=== PATIENT | female | born 1960 | race Caucasian/White ===

== ENCOUNTER 2022-09-16 07:56 | Day surgery (SDC) | payer MEDICARE, MEDICAID, SELFPAY ==
[2022-09-16 08:26] VITALS: BP 137/76; PULSE 94; RESP 16; TEMP 36.6; O2SAT 95
[2022-09-16] MEDS: Tropicam./Phenyleph. (1/2.5%) 5 ML BTL OS ×3 (08:41→08:52)
--- NOTE | 2022-09-16 09:00 | W.ANESPRE ---
General Info Date of Service Date Performed: 09/16/22 Height: 5 ft 4 in Weight: 90.2 kg Body Mass Index (BMI): 34.1 Surgical Procedure: Operation Date: 09/16/22 10:40 Proposed Procedure Side Surgeon p Cataract Extraction with IOL Implant Left Gio Underwood MD Meds Allergies and Home Medications Allergies Allergy/AdvReac Type Severity Reaction Status Date / Time No Known Allergies Allergy Verified 09/16/22 08:25 Home Medication Medication Instructions Recorded aripiprazole 5 mg tablet 5 mg PO DAILY 09/14/22 aspirin 81 mg capsule,delayed 81 mg PO DAILY 09/14/22 release budesonide-formoterol HFA 80 2 puff inhalation BID 09/14/22 mcg-4.5 mcg/actuation aerosol inhaler (Symbicort) diclofenac sodium 1 % topical gel 1 applic topical QID PRN 09/14/22 famotidine 20 mg tablet (Pepcid) 20 mg PO BID 09/14/22 gabapentin 300 mg tablet 900 mg PO TID 09/14/22 prednisone 1 mg tablet 4 mg PO DAILY 09/14/22 sertraline 100 mg tablet 100 mg PO DAILY 09/14/22 sertraline 50 mg tablet 50 mg PO DAILY 09/14/22 aripiprazole 2 mg tablet (Abilify) 2 mg PO DAILY 09/16/22 Current Visit Medications: Current Medications Generic Name Dose Route Start Last Admin Trade Name Freq PRN Reason Stop Dose Admin Acetaminophen 1,000 mg 09/16/22 06:00 Acetaminophen 500 Mg Tab PO Q4H PRN PRN Miscellaneous Medication 0 ml 09/16/22 06:00 09/16/22 08:52 Tropicam./Phenyleph. (1/2.5%) 5 Ml Btl OS 1 drp DIRECTED [facility] Administration Miscellaneous Medication 0 ml 09/16/22 06:00 Prednisolone 1%, Moxifloxacin 0.5%, Nepafenac 0.1% 5ml Btl OS DIRECTED [facility] Tetracaine HCl 0 ml 09/16/22 06:00 Tetracaine 0.5% 4 Ml Btl OS DIRECTED [facility] Medical History Medical History (Updated 09/16/22 @ 08:21 by Franko Weir) ADHD Anesthesia of skin Benign neoplastic disease Cataract Cervical radiculopathy Cervical spine degeneration Cervical spondylosis with myelopathy COPD (chronic obstructive pulmonary disease) Depressive disorder Fibromyalgia Headache HLD (hyperlipidemia) 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 Nicotine dependence HUONG (obstructive sleep apnea) Pain, joint, shoulder, left Polymyalgia rheumatica Therapeutic drug monitoring TMJ (temporomandibular joint disorder) Surgical History Surgical History History of arthroscopy of left shoulder History of orthopedic surgery Hx of cholecystectomy Hx of tubal ligation Tobacco Smoking/Tobacco Use Status: Current every day Tobacco Type: cigarettes Alcohol Alcohol Intake: never Substance Use Substance use: Never Substance use type: does not use Vital Signs and Lab Results Vital Signs Most Recent Vital Signs in EMR: Most Recent Vital Signs Temp Pulse Resp BP Pulse Ox 36.6 C 94 H 16 137/76 95 09/16/22 08:26 09/16/22 08:26 09/16/22 08:26 09/16/22 08:26 09/16/22 08:26 Lab Results Blood Type / Crossmatch: No Data to Display Complete Blood Count: No Data to Display Complete Metabolic Panel: No Data to Display Liver Function Panel: No Data to Display Coagulation Panel: No Data to Display Cardiac Panel: No Data to Display Arterial Blood Gas: No Data to Display Venous Blood Gas: No Data to Display Pancreas Panel: No Data to Display Thyroid Panel: No Data to Display Infectious Disease: No Data to Display Blood Cultures: No Data to Display Toxicology Panel: No Data to Display Anesthesia Assessment and Plan Anesthesia History Personal History: No History of Anesthesia Complications Family History: No Family History of Anesthesia Complications Exercise Tolerance Exercise Tolerance: Metabolic Equivalents>4 Pertinent Negatives Pertinent Negatives: No Symptoms of GERD (med controlled ) Cardiac & Pulmonary Exam Cardiac Exam: Normal S1/S2 Heart Sounds Pulmonary Exam: Clear Bilateral Breath Sounds Implantable Cardiac Device Does patient have a Pacemaker or an ICD?: No Airway Exam Known Difficult Airway: No Mallampati Class: 2 Mouth Opening: Normal (> 3cm) Thyromental Distance: Greater than 3 cm Neck Range of Motion: Full ROM Neck Circumference: Normal Teeth Condition: Normal Dentition ASA Classification ASA Score: ASA 2 Emergency Case?: No NPO Status NPO Status: NPO Clears >2 hours, Solids >8 hours Anesthesia Plan Resuscitation Status: Full Code Anesthesia Technique: MAC Anesthesia Airway Planned: Natural Airway Monitors Used: Standard Monitors Preoperative Comments:: Wants. CHARLES
[2022-09-16 09:08] VITALS: BMI 34.1
[2022-09-16] MEDS: Balanced Salt Soln.-PLUS 500 ML BAG (09:38)
[2022-09-16] MEDS: Tetracaine 0.5% 4 ML BTL OS (09:38)
[2022-09-16] MEDS: Duovisc Viscoelastic System EACH 1 EACH (09:39)
[2022-09-16] MEDS: Lidocaine 1% Pres-Free 5 ML VIAL (09:39)
[2022-09-16] MEDS: Lidocaine 2% Jelly 6 ML SYR (09:40)
[2022-09-16] MEDS: Trypan Blue 0.06% 0.5 ML SYR (09:41)
[2022-09-16] MEDS: Povidone-Iodine Ophth 30 ML BTL (09:41)
--- NOTE | 2022-09-16 10:14 | ROE_ITS ---
Date of service: 09/16/22 Time of Service: 10:15 Operative Note Operative Note DATE OF PROCEDURE: 09/16/22 PRE-OP DIAGNOSIS: Dense nuclear/cortical cataract, left eye POST-OP DIAGNOSIS: same PROCEDURE: Cataract extraction using phacoemulsification with intraocular lens implant, left eye SURGEON: Gio Underwood ANESTHESIA TYPE: Local By Surgeon and MAC Refer to Anesthesia Record PATHOLOGY: none sent COMPLICATIONS: None Patient was transported to: same day Patient's condition: stable Implants: Jj Clareon [id number] Indications: Progressive decreased vision due to cataract, left eye Procedure Description: CATARACT SURGERY OPERATIVE REPORT PREOPERATIVE DIAGNOSIS: Dense nuclear/cortical cataract, left eye POSTOPERATIVE DIAGNOSIS: Same OPERATION: Cataract extraction using phacoemulsification with posterior chamber intraocular lens implant, left eye. IOL: IOL Crew Leader Gluing/Model: Jj Clareon [id number] IOL Power: + 22.5 diopters IOL Serial Number: [id number] Optic Diameter: 6.0mm Haptic/Overall Diameter: 13.0mm PHACO INFO: JjTouchbase[employer]We[employer] Apps Vision System with OZil and Active Fluidics Cumulative Dispersed Energy (CDE): 16.70 seconds SURGEON: Gio Underwood MD, MARISELA ANESTHESIA: Monitored Anesthesia Care (MAC), with local sub-tenon's anesthetic infiltration COMPLICATIONS: None SPECIMENS: None INDICATIONS FOR PROCEDURE: The patient is a 62-year-old lady with history of diminished visual acuity in her left eye. She is noted to have a dense nuclear/cortical cataract in the left eye with poor red reflex. The option of cataract surgery was offered to the patient and she wished to proceed. PROCEDURE: The correct surgical eye was identified and marked as the left eye and the pupil was dilated in the preoperative area using mydriatics and cycloplegics. The dilated pupil size was 6.0 mm. Oral sedation was administered in the form of an Imprimis MKO Melt (midazolam 3mg/ketamine 25mg/ondansetron 2mg). . The patient was brought to the operating room where cardiopulmonary monitoring was instituted and surgical time-out was performed, confirming the correct operative eye and IOL power. Topical anesthesia was administered and ophthalmic povidone-iodine 5% was instilled into the conjunctival fornices. Lidocaine gel was applied to the cornea and the radha-ocular area was prepped with Betadine 10% solution and draped in the usual sterile fashion for intraocular surgery, including an a perture drape. A Tegaderm transparent film dressing was cut in half and used to cover the lashes and lid margins. Care was taken to sequester the lashes and lid margins under the Tegaderm dressing. A lid speculum was placed between the lids of the operative eye and the Jj Lux[employer] Revalia operating microscope was maneuvered into position. Orly scissors were then used to make a conjunctival buttonhole approximately 6mm posterior to the limbus in the inferonasal quadrant. Blunt dissection was carried out to expose bare sclera, and a blunt-tipped sub-tenon?s anesthesia cannula was introduced and passed posteriorly along the globe where non- preserved plain lidocaine was injected into posterior sub-Tenon?s space. A sideport knife was used to make a paracentesis port superior/superiortemporally. VisionBlue was injected into the anterior chamber and left to sit for 10 to 12 seconds. Intraocular phenylephrine/lidocaine was injected into the anterior chamber. The anterior chamber was then filled with viscoelastic. A keratome knife was used construct a two-plane near-clear corneal tunnel extending 2.0mm into clear cornea in the temporal position. . A flap was raised on the anterior capsule and capsulorhexis forceps were used to complete a continuous curvilinear capsulorhexis of 5.0 mm. Balanced salt solution was then used to perform cortical cleaving hydrodissection and nuclear hydrodelineation until the lens could be freely rotated within the capsular bag. The lens nucleus was then disassembled and removed within the capsular bag and iris plane using phacoemulsification. Nuclear splitters were used, as the nucleus did not want to crack easily. Residual cortical material was removed using the 45-degree angled silicone I/A tip with 0.3mm port. The posterior capsule was carefully polished to remove as much residual lens epithelial cells as safely possible. The capsular bag was then inflated and the anterior chamber deepened with viscoelastic. The lens implant described above was inserted into the capsular bag using the Jj Autonome Injector. A Kuglen hook was used to dial the IOL into position. Residual viscoelastic was then removed first from posterior to the IOL, then from the anterior chamber using the I/A handpiece. The lens implant was noted to center nicely within the capsular bag. The incisions were stromally hydrated, and the anterior chamber was reformed using BSS. Then 0.5cc of moxifloxacin 1.0mg/ml were injected into the capsular bag and anterior chamber. The incisions were checked with a Weck spear and found to be secure. Several drops of ophthalmic povidone-iodine 5% were then applied to the eye followed by two drops of Imprimis combination prednisolone/moxifloxacin/nepafenac solution. The drapes were removed and a clear plastic protective eye shield was placed over the eye. The patient was then returned to Same Day Surgery in stable condition.
--- NOTE | 2022-09-16 10:14 | W.PM.DSUDISC ---
Date of service: 09/16/22 Time of Service: 10:14 Discharge Plan Disposition Patient Disposition: Home Discharge Details Attending Provider: Gio Underwood Primary Care Provider: Chay Hopkins Home Meds and New Rx's Prescriptions: No Action sertraline 100 mg Tablet 100 mg PO DAILY aspirin 81 mg Capsule,Delayed Release(Dr/Ec) 81 mg PO DAILY famotidine [Pepcid] 20 mg Tablet 20 mg PO BID prednisone 1 mg Tablet 4 mg PO DAILY sertraline 50 mg Tablet 50 mg PO DAILY aripiprazole 5 mg Tablet 5 mg PO DAILY gabapentin 300 mg Tablet 900 mg PO TID budesonide-formoterol [Symbicort] 80-4.5 mcg/actuation Hfa Aerosol Inhaler 2 puff INHALATION BID diclofenac sodium 1 % Gel 1 applic TOPICAL QID PRN aripiprazole [Abilify] 2 mg Tablet 2 mg PO DAILY Discharge Instructions Stand Alone Forms: Post-op Topical Cataract, Jakub Mascorro (DSU) Discharge Orders Discharge Orders: Discharge Order (Routine); Ordered 09/16/22 Ordered By: Gio Underwood DS: Diagnosis Discharge Diagnosis (1) Cortical cataract of left eye: Status: Resolved (2) Nuclear sclerotic cataract of left eye: Status: Resolved
[2022-09-16 10:15] VITALS: BP 108/66; PULSE 84; RESP 18; TEMP 36.5; O2SAT 98
--- NOTE | 2022-09-16 10:30 | W.ANESPOSTOP ---
Postoperative Evaluation Date, Time and Location Date Performed: 09/16/22 Time Performed: 10:15 Patient Location: Day Surgery Unit Vital Signs Most Recent Imported Vital Signs: Most Recent Vital Signs Temp Pulse Resp BP Pulse Ox 36.5 C 84 18 108/66 98 09/16/22 10:15 09/16/22 10:15 09/16/22 10:15 09/16/22 10:15 09/16/22 10:15 Pain Score Most Recent Pain Score: Most Recent Pain Score Pain Level 0 09/16/22 10:15 Assessment Mental Status: Awake (Alert & Oriented to Patient Baseline) Airway and Respiratory Function: Patent airway with normal (patient baseline) respiratory exam Cardiovascular Function: Hemodynamically Stable Hydration Status: Adequately Hydrated Nausea & Vomiting: No Nausea or Vomiting Pain: Pt. Denies Any Pain Peripheral Nerve Block: Patient did not receive a nerve block
[2022-09-16 10:45] VITALS: BP 117/88; PULSE 83; RESP 18; TEMP 36.6; O2SAT 96
== END 2022-09-16 10:50 | disposition home or self-care (01) ==
LOC: SUR 07:58
PROVIDERS: PCP Family Medicine; Visit Provider Ophthalmology
PROC: (CPT 66982; principal; 2022-09-16 10:30)
DX: H25.12 Age-related nuclear cataract, left eye (principal); H26.8 Other specified cataract
CPT/HCPCS: 66982; V2632

== ENCOUNTER 2022-09-23 06:54 | Day surgery (SDC) | payer MEDICARE, MEDICAID, SELFPAY ==
--- NOTE | 2022-09-23 06:50 | ANES.PREOP_ITS ---
General Info Date of Service Date Performed: 09/23/22 Height: 5 ft 3 in Weight: 89.7 kg Body Mass Index (BMI): 35.0 Surgical Procedure: Operation Date: 09/23/22 08:25 Proposed Procedure Side Surgeon p Cataract Extraction with IOL Implant Right Gio Underwood MD Meds Allergies and Home Medications Allergies Allergy/AdvReac Type Severity Reaction Status Date / Time No Known Allergies Allergy Verified 09/21/22 15:10 Home Medication Medication Instructions Recorded aripiprazole 5 mg tablet 5 mg PO DAILY 09/14/22 aspirin 81 mg capsule,delayed 81 mg PO DAILY 09/14/22 release budesonide-formoterol HFA 80 2 puff inhalation BID 09/14/22 mcg-4.5 mcg/actuation aerosol inhaler (Symbicort) diclofenac sodium 1 % topical gel 1 applic topical QID PRN 09/14/22 famotidine 20 mg tablet (Pepcid) 20 mg PO BID 09/14/22 gabapentin 300 mg tablet 900 mg PO TID 09/14/22 prednisone 1 mg tablet 4 mg PO DAILY 09/14/22 sertraline 100 mg tablet 100 mg PO DAILY 09/14/22 sertraline 50 mg tablet 50 mg PO DAILY 09/14/22 aripiprazole 2 mg tablet (Abilify) 2 mg PO DAILY 09/16/22 Current Visit Medications: Current Medications Generic Name Dose Route Start Last Admin Trade Name Freq PRN Reason Stop Dose Admin Acetaminophen 1,000 mg 09/23/22 06:00 Acetaminophen 500 Mg Tab PO Q4H PRN PRN Miscellaneous Medication 0 ml 09/23/22 06:00 Tropicam./Phenyleph. (1/2.5%) 5 Ml Btl OD DIRECTED [facility] Miscellaneous Medication 0 ml 09/23/22 06:00 Prednisolone 1%, Moxifloxacin 0.5%, Nepafenac 0.1% 5ml Btl OD DIRECTED [facility] Tetracaine HCl 0 ml 09/23/22 06:00 Tetracaine 0.5% 4 Ml Btl OD DIRECTED [facility] PFSH Active Problems Active Problems: Problem Status Onset Code Cortical cataract of left eye H26.9 Nuclear sclerotic cataract of left eye H25.12 Medical History Medical History (Updated 09/23/22 @ 08:03 by Gio Underwood MD) ADHD Anesthesia of skin Benign neoplastic disease Cataract Cervical radiculopathy Cervical spine degeneration Cervical spondylosis with myelopathy COPD (chronic obstructive pulmonary disease) Depressive disorder Fibromyalgia Headache HLD (hyperlipidemia) 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 Nicotine dependence HUONG (obstructive sleep apnea) Pain, joint, shoulder, left Polymyalgia rheumatica Therapeutic drug monitoring TMJ (temporomandibular joint disorder) Surgical History Surgical History History of arthroscopy of left shoulder History of orthopedic surgery Hx of cholecystectomy Hx of tubal ligation Tobacco Smoking/Tobacco Use Status: Current every day Tobacco Type: cigarettes Alcohol Alcohol Intake: never Substance Use Substance use: Never Substance use type: does not use Vital Signs and Lab Results Lab Results Blood Type / Crossmatch: No Data to Display Complete Blood Count: No Data to Display Complete Metabolic Panel: No Data to Display Liver Function Panel: No Data to Display Coagulation Panel: No Data to Display Cardiac Panel: No Data to Display Arterial Blood Gas: No Data to Display Venous Blood Gas: No Data to Display Pancreas Panel: No Data to Display Thyroid Panel: No Data to Display Infectious Disease: No Data to Display Blood Cultures: No Data to Display Toxicology Panel: No Data to Display Anesthesia Assessment and Plan Anesthesia History Personal History: No History of Anesthesia Complications Family History: No Family History of Anesthesia Complications Exercise Tolerance Exercise Tolerance: Metabolic Equivalents>4 Pertinent Negatives Pertinent Negatives: No Symptoms of GERD, No Major Cardiovascular Symptoms or Complaints, No Major Pulmonary Symptoms or Complaints and No History of CVA/TIA Cardiac & Pulmonary Exam Cardiac Exam: Normal S1/S2 Heart Sounds Pulmonary Exam: Clear Bilateral Breath Sounds Implantable Cardiac Device Does patient have a Pacemaker or an ICD?: No Airway Exam Known Difficult Airway: No Mallampati Class: 2 Mouth Opening: Normal (> 3cm) Thyromental Distance: Greater than 3 cm Neck Range of Motion: Full ROM Neck Circumference: Normal Teeth Condition: Edentulous ASA Classification ASA Score: ASA 3 Emergency Case?: No NPO Status NPO Status: NPO Clears >2 hours, Solids >8 hours Anesthesia Plan Resuscitation Status: Full Code Anesthesia Technique: MAC Anesthesia Airway Planned: Natural Airway Monitors Used: Standard Monitors Preoperative Comments:: MKO last visit. Wants a repeat of plan
[2022-09-23 06:59] VITALS: BP 142/105; PULSE 86; RESP 16; TEMP 36.6; O2SAT 97
[2022-09-23] MEDS: Tropicam./Phenyleph. (1/2.5%) 5 ML BTL OD ×3 (07:22→07:32)
[2022-09-23 08:17] VITALS: BMI 35.0
[2022-09-23] MEDS: Tetracaine 0.5% 4 ML BTL OD (08:25)
[2022-09-23] MEDS: Trypan Blue 0.06% 0.5 ML SYR (08:26)
[2022-09-23] MEDS: Balanced Salt Soln.-PLUS 500 ML BAG (08:31)
[2022-09-23] MEDS: Duovisc Viscoelastic System EACH 1 EACH (08:32)
[2022-09-23] MEDS: Lidocaine 2% Jelly 6 ML SYR (08:33)
[2022-09-23 08:46] VITALS: BP 121/92; PULSE 85; RESP 16; TEMP 36.5; O2SAT 97
--- NOTE | 2022-09-23 08:46 | W.PM.DSUDISC ---
Date of service: 09/23/22 Time of Service: 08:46 Discharge Plan Disposition Patient Disposition: Home Discharge Details Attending Provider: Gio Underwood Primary Care Provider: Chay oHpkins Home Meds and New Rx's Prescriptions: No Action sertraline 100 mg Tablet 100 mg PO DAILY aspirin 81 mg Capsule,Delayed Release(Dr/Ec) 81 mg PO DAILY famotidine [Pepcid] 20 mg Tablet 20 mg PO BID prednisone 1 mg Tablet 4 mg PO DAILY sertraline 50 mg Tablet 50 mg PO DAILY aripiprazole 5 mg Tablet 5 mg PO DAILY gabapentin 300 mg Tablet 900 mg PO TID budesonide-formoterol [Symbicort] 80-4.5 mcg/actuation Hfa Aerosol Inhaler 2 puff INHALATION BID diclofenac sodium 1 % Gel 1 applic TOPICAL QID PRN aripiprazole [Abilify] 2 mg Tablet 2 mg PO DAILY Discharge Instructions Stand Alone Forms: Post-op Topical Cataract, Jakub Mascorro (DSU) Discharge Orders Discharge Orders: Discharge Order (Routine); Ordered 09/23/22 Ordered By: Gio Underwood DS: Diagnosis Discharge Diagnosis (1) Cortical cataract of right eye: Status: Resolved (2) Nuclear sclerotic cataract of right eye: Status: Resolved
--- NOTE | 2022-09-23 08:47 | W.PM.OP ---
Date of service: 09/23/22 Time of Service: 08:47 Operative Note Operative Note DATE OF PROCEDURE: 09/23/22 PRE-OP DIAGNOSIS: Nuclear/cortical cataract, right eye POST-OP DIAGNOSIS: same PROCEDURE: Cataract extraction using phacoemulsification with intraocular lens implant, right eye SURGEON: Gio Underwood ANESTHESIA TYPE: Local By Surgeon and MAC Refer to Anesthesia Record ESTIMATED BLOOD LOSS: 0 PATHOLOGY: none sent COMPLICATIONS: None Patient was transported to: same day Patient's condition: stable Implants: Jj Clareon [id number] Indications: Progressive decreased vision due to cataract, right eye Procedure Description: CATARACT SURGERY OPERATIVE REPORT PREOPERATIVE DIAGNOSIS: Nuclear/cortical cataract, right eye Poor red reflex, right eye secondary to cataract POSTOPERATIVE DIAGNOSIS: Same OPERATION: Cataract extraction using phacoemulsification with posterior chamber intraocular lens implant, right eye. Capsular staining with VisionBlue IOL: IOL Radiation Control Specialist/Model: Jj Clareon [id number] IOL Power: + 23.5 diopters IOL Serial Number: [id number] Optic Diameter: 6.0mm Haptic/Overall Diameter: 13.0mm PHACO INFO: Jj [employer] Vision System with OZil and Active Fluidics Cumulative Dispersed Energy (CDE): 8.30 seconds SURGEON: Gio Underwood MD, MARISELA ANESTHESIA: Monitored Anesthesia Care (MAC), with local sub-tenon's anesthetic infiltration COMPLICATIONS: None SPECIMENS: None INDICATIONS FOR PROCEDURE: The patient is a 62-year-old lady with history of diminished visual acuity in both eyes secondary to the development of bilateral nuclear/cortical cataract. The option of cataract surgery was offered to the patient and she wished to proceed. She has already undergone cataract surgery in the left eye and is doing well postoperatively. She now presents for cataract surgery in the right eye. PROCEDURE: The correct surgical eye was identified and marked as the right eye and the pupil was dilated in the preoperative area using mydriatics and cycloplegics. The dilated pupil size was 6.0 mm. Oral sedation was administered in the form of an Imprimis MKO Melt (midazolam 3mg/ketamine 25mg/ondansetron 2mg). The patient was brought to the operating room where cardiopulmonary monitoring was instituted and surgical time-out was performed, confirming the correct operative eye and IOL power. Topical anesthesia was administered and ophthalmic povidone-iodine 5% was instilled into the conjunctival fornices. Lidocaine gel was applied to the cornea and the radha-ocular area was prepped with Betadine 10% solution and draped in the usual sterile fashion for intraocular surgery, including an aperture drape. A Tegaderm transparent film dressing was cut in half and used to cover the lashes and lid margins. Care was taken to sequester the lashes and lid margins under the Tegaderm dressing. A lid speculum was placed between the lids of the operative eye and the Benji-Meagan operating microscope was maneuvered into position. Orly scissors were then used to make a conjunctival buttonhole approximately 6mm posterior to the limbus in the inferonasal quadrant. Blunt dissection was carried out to expose bare sclera, and a blunt-tipped sub-tenon?s anesthesia cannula was introduced and passed posteriorly along the globe where non-preserved plain lidocaine was injected into posterior sub-Tenon?s space. A sideport knife was used to make a paracentesis port inferiortemporally. Intraocular phenylephrine/lidocaine was injected into the anterior chamber. The anterior chamber was then filled with viscoelastic. A keratome knife was used to construct a two--plane near-clear corneal tunnel extending 2.0mm into clear cornea in the superiortemporal position.. A flap was raised on the anterior capsule and capsulorhexis forceps were used to complete a continuous curvilinear capsulorhexis of 4.8 mm. Balanced salt solution was then used to perform cortical cleaving hydrodissection and nuclear hydrodelineation until the lens could be freely rotated within the capsular bag. The lens nucleus was then disassembled and removed within the capsular bag and iris plane using phacoemulsification. Residual cortical material was removed using the I/A handpiece. The posterior capsule was carefully polished to remove as much residual lens epithelial cells as safely possible. There was some residual central posterior subcapsular plaque which could not be safely removed. The capsular bag was then inflated and the anterior chamber deepened with viscoelastic. The lens implant described above was inserted into the capsular bag using the Jj Autonome Injector. A Kuglen hook was used to dial the IOL into position. Residual viscoelastic was then removed first from posterior to the IOL, then from the anterior chamber using the I/A handpiece. The lens implant was noted to center nicely within the capsular bag. The incisions were stromally hydrated, and the anterior chamber was reformed using BSS. Then 0.5cc of moxifloxacin 1.0mg/ml were injected into the capsular bag and anterior chamber. The incisions were checked with a Weck spear and found to be secure. Several drops of ophthalmic povidone-iodine 5% were then applied to the eye followed by two drops of Imprimis combination prednisolone/moxifloxacin/nepafenac solution. The drapes were removed and a clear plastic protective eye shield was placed over the eye. The patient was then returned to Same Day Surgery in stable condition.
[2022-09-23 09:10] VITALS: BP 142/102; PULSE 83; RESP 16; TEMP 36.5; O2SAT 97
--- NOTE | 2022-09-23 10:01 | W.ANESPOSTOP ---
Postoperative Evaluation Date, Time and Location Date Performed: 09/23/22 Time Performed: 08:47 Patient Location: Day Surgery Unit Vital Signs Most Recent Imported Vital Signs: Most Recent Vital Signs Temp Pulse Resp BP Pulse Ox 36.5 C 83 16 142/102 H 97 09/23/22 09:10 09/23/22 09:10 09/23/22 09:10 09/23/22 09:10 09/23/22 09:10 Pain Score Most Recent Pain Score: Most Recent Pain Score Pain Level 0 09/23/22 09:10 Assessment Mental Status: Awake (Alert & Oriented to Patient Baseline) Airway and Respiratory Function: Patent airway with normal (patient baseline) respiratory exam Cardiovascular Function: Hemodynamically Stable Hydration Status: Adequately Hydrated Nausea & Vomiting: No Nausea or Vomiting Pain: Pt. Denies Any Pain Peripheral Nerve Block: Other (Local by Dr. Underwood)
== END 2022-09-23 09:15 | disposition home or self-care (01) ==
LOC: SUR 06:54
PROVIDERS: PCP Family Medicine; Visit Provider Ophthalmology
PROC: (CPT 66982; principal; 2022-09-23 08:15)
DX: H25.11 Age-related nuclear cataract, right eye (principal); H26.8 Other specified cataract
CPT/HCPCS: 66982; V2632

== ENCOUNTER 2023-06-05 14:50 | Outpatient (REF) | payer MEDICARE, MEDICAID, SELFPAY ==
[2023-06-05 15:00] LABS: Absolute Basophil Count 0.03 10^3/uL (0.0-0.2); Absolute Eosinophil Count 0.02 10^3/uL (0.0-0.7); Absolute Lymphocyte Count 0.59 10^3/uL (1.2-3.4); Absolute Monocyte Count 0.23 10^3/uL (0.1-0.8); Basophils % 2.9; HCT 33.4 % (36.0-46.0); HGB 10.7 g/dL (11.2-15.7); Lymphocytes % 57.8; MCH 28.2 pg (27.0-33.0); MCV 88 fL (80-95); MPV 9.6 fL (8.0-11.0); Monocytes % 22.5; Neutrophils % 14.8; Platelet Count 209 10^3/uL (130-400); RBC 3.79 10^6/uL (3.93-5.22); RDW 15.4 % (11.7-14.6); RDW-SD 47.9 fL
[2023-06-05 15:08] LABS: Absolute Neutrophil Count 0.15 10^3/uL (1.2-6.7); WBC 1.02 10^3/uL (4.4-10.8)
[2023-06-05 15:09] LABS: ALT 103 U/L (14-59); AST 92 U/L (15-37); Albumin 2.8 g/dL (3.4-5.0); Alkaline Phosphatase 366 U/L (46-116); Anion Gap 11.2 mmol/L (3-11); BUN 10 mg/dL (7-18); Bilirubin, Total 0.3 mg/dL (0.2-1.0); CO2 24.8 mmol/L (21.0-32.0); CREATININE 0.6 mg/dL (0.55-1.02); Calcium 9.2 mg/dL (8.5-10.1); Chloride 101 mmol/L (98-107); Estimated GFR 99.55 (mL/min/1.73m2); Glucose 124 mg/dL (74-106); Potassium 3.7 mmol/L (3.5-5.1); Sodium 137 mmol/L (136-145); Total Protein 7.7 g/dL (6.4-8.2)
[2023-06-05 15:16] LABS: Diff Comment Diff Reviewed; RBC Morphology Normal
== END 2023-06-05 14:51 | disposition home or self-care (01) ==
LOC: LBN 14:50
PROVIDERS: PCP Family Medicine; Visit Provider Internal Medicine Medical Oncology
DX: C34.90 Malignant neoplasm of unspecified part of unspecified bronchus or lung (principal); C69.51 Malignant neoplasm of right lacrimal gland and duct; C78.7 Secondary malignant neoplasm of liver and intrahepatic bile duct
CPT/HCPCS: 80053; 83735; 85025

== ENCOUNTER 2023-06-14 01:43 | Outpatient (CLI) | payer MEDICARE, MEDICAID, SELFPAY ==
[2023-06-14 08:36] LABS: Absolute Eosinophil Count 0.02 10^3/uL (0.0-0.7); Absolute Lymphocyte Count 1.38 10^3/uL (1.2-3.4); Absolute Monocyte Count 1.03 10^3/uL (0.1-0.8); Basophils % 0.9; Eosinophils % 0.2; HCT 35.4 % (36.0-46.0); HGB 11.4 g/dL (11.2-15.7); Immature Grans % 3.7; Lymphocytes % 12.7; MCH 28.1 pg (27.0-33.0); MCHC 32.2 % (32.0-36.0); MCV 87 fL (80-95); MPV 10.3 fL (8.0-11.0); Monocytes % 9.5; Platelet Count 418 10^3/uL (130-400); RBC 4.05 10^6/uL (3.93-5.22); RDW 17.2 % (11.7-14.6); RDW-SD 51.9 fL; WBC 10.83 10^3/uL (4.4-10.8)
[2023-06-14 08:39] LABS: Absolute Neutrophil Count 7.91 10^3/uL (1.2-6.7)
[2023-06-14 08:56] LABS: ALT 74 U/L (14-59); AST 244 U/L (15-37); Albumin 2.8 g/dL (3.4-5.0); Alkaline Phosphatase 598 U/L (46-116); Anion Gap 11.2 mmol/L (3-11); BUN 6 mg/dL (7-18); Bilirubin, Total 0.5 mg/dL (0.2-1.0); CO2 23.8 mmol/L (21.0-32.0); CREATININE 0.6 mg/dL (0.55-1.02); Calcium 9.6 mg/dL (8.5-10.1); Chloride 101 mmol/L (98-107); Estimated GFR 99.55 (mL/min/1.73m2); FREE T4 1.25 ng/dL (0.76-1.46); Glucose 109 mg/dL (74-106); Magnesium 1.9 mg/dL (1.8-2.4); Potassium 3.9 mmol/L (3.5-5.1); Sodium 136 mmol/L (136-145); TSH 4.16 uIU/mL (0.36-3.74); Total Protein 7.9 g/dL (6.4-8.2)
== END 2023-06-14 01:44 | disposition home or self-care (01) ==
LOC: LBO 01:43
PROVIDERS: PCP Family Medicine; Visit Provider Internal Medicine Medical Oncology
DX: Z79.899 Other long term (current) drug therapy (principal); C34.90 Malignant neoplasm of unspecified part of unspecified bronchus or lung; C79.51 Secondary malignant neoplasm of bone
CPT/HCPCS: 36415; 80053; 83735; 84439; 84443; 85025

== ENCOUNTER → 2023-06-28 01:54 | Outpatient (CLI) | payer MEDICARE, MEDICAID, SELFPAY ==
--- NOTE | 2023-06-28 | DI.CT_ITS ---
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 TECHNIQUE: Imaging Protocol: Axial computed tomography images with coronal and sagittal reformatted images were created and reviewed CONTRAST MATERIAL: Intravenous: Omnipaque 350 Contrast volume:100 ml Oral: yes / COMPARISON: CT CT CHEST/ABD/PELVIS W/CONTRAST from 04/13/2023 FINDINGS: CHEST: Tracheobronchial tree: Patent where visualized. Pulmonary parenchyma: There is now please atelectasis of the right upper lobe. Underlying moderate e mphysematous changes. No pulmonary nodules.. Pleura: No effusion or pneumothorax. Lymph nodes: Abnormally enlarged bilateral supraclavicular lymph nodes not fully included on the exam . Confluent right paratracheal to subcarinal lymph nodes, stable appearance. Aorta: Thoracic portio n non-dilated. Heart: No pericardial effusion. Bones: Patchy areas of lucency in the T7, T9 and T10 vertebral bodies appear stable.No compression fr actures. Soft tissues: Unremarkable. ABDOMEN and PELVIS: Liver: Significant interval increase in size of liver metastases. Gallbladder and biliary tract: Status post cholecystectomy. No biliary dilatation. Pancreas: Normal density, no abnormal calcifications or inflammatory process. Spleen: Normal. Kidneys: Normal size, contour and axis. No radiodense stones hip. No obstructive uropathy. No suspic ious masses seen. Adrenal glands: Increase in size of right adrenal metastasis. A new small nodule in the inferior lef t adrenal. Aorta: Abdominal portion non-dilated. Atherosclerotic changes. Lymph nodes: Stable appearance of portacaval and para-aortic adenopathy. Soft tissues: Unremarkable. Bladder: Unremarkable. Bowel: No obstruction or bowel wall thickening. Diverticulosis. Appendix normal. Peritoneal cavity: No ascites. No focal collection. No mesenteric inflammatory response. Bones: Severe degenerative changes of the right hip. Reproductive organs: Status post hysterectomy. IMPRESSION: Chest: Atelectasis of the right upper lobe now present. Mediastinal adenopathy appears relatively un changed. Abdomen pelvis: Interval increase in size of liver metastases. Stable portacaval and para-aortic franco nopathy. Increased size of right adrenal metastasis. New left adrenal metastasis. RADIATION DOSE DELIVERED: Total DLP DATA REPOSITORY: All CT scans at this facility are submitted to the National Radiology Data Registry (NRDR) Dose Index Registry (DIR) with the [employer] ([employer]). RADIATION OPTIMIZATION: All CT scans at this facility use at least one of these dose optimization te chniques: automated exposure control; mA and/or kV adjustment per patient size (includes targeted exa ms where dose is matched to clinical indication); or iterative reconstruction.
[2023-06-28] MEDS: Omnipaque 350 MG/ML 100 ML BTL IJ (14:25)
[2023-06-28] MEDS: Normal Saline - Diluent 50 ML VIAL IJ (14:26)
== END ==
PROVIDERS: PCP Family Medicine; Visit Provider Internal Medicine Medical Oncology
DX: C34.91 Malignant neoplasm of unspecified part of right bronchus or lung (principal); C79.51 Secondary malignant neoplasm of bone; C78.7 Secondary malignant neoplasm of liver and intrahepatic bile duct
CPT/HCPCS: 74177; 71260; J3490

== ENCOUNTER 2023-07-03 03:31 | Outpatient (CLI) | payer MEDICARE, MEDICAID, SELFPAY ==
[2023-07-03 09:48] LABS: Abs Immature Grans 0.13 10^3/uL (0.0-0.06); Absolute Eosinophil Count 0.02 10^3/uL (0.0-0.7); Absolute Neutrophil Count 12.71 10^3/uL (1.2-6.7); Basophils % 0.7; Eosinophils % 0.1; HCT 35.1 % (36.0-46.0); HGB 11.4 g/dL (11.2-15.7); Immature Grans % 0.9; Lymphocytes % 7.3; MCH 28.2 pg (27.0-33.0); MCHC 32.5 % (32.0-36.0); MCV 87 fL (80-95); MPV 9.8 fL (8.0-11.0); Monocytes % 6.9; Neutrophils % 84.1; Nucleated RBC 0.1 % (0.0-0.3); Platelet Count 415 10^3/uL (130-400); RBC 4.04 10^6/uL (3.93-5.22); RDW 18.9 % (11.7-14.6); RDW-SD 57.1 fL; WBC 15.11 10^3/uL (4.4-10.8)
[2023-07-03 09:53] LABS: Absolute Basophil Count 0.11 10^3/uL (0.0-0.2); Absolute Monocyte Count 1.04 10^3/uL (0.1-0.8)
[2023-07-03 10:17] LABS: ALT 34 U/L (14-59); AST 187 U/L (15-37); Albumin 2.7 g/dL (3.4-5.0); Alkaline Phosphatase 598 U/L (46-116); Anion Gap 12.4 mmol/L (3-11); BUN 5 mg/dL (7-18); Bilirubin, Total 0.5 mg/dL (0.2-1.0); CO2 22.6 mmol/L (21.0-32.0); CREATININE 0.7 mg/dL (0.55-1.02); Calcium 9.4 mg/dL (8.5-10.1); Chloride 98 mmol/L (98-107); Estimated GFR 95.92 (mL/min/1.73m2); FREE T4 1.24 ng/dL (0.76-1.46); Glucose 155 mg/dL (74-106); Magnesium 1.9 mg/dL (1.8-2.4); Potassium 3.6 mmol/L (3.5-5.1); Sodium 133 mmol/L (136-145); Total Protein 7.9 g/dL (6.4-8.2)
== END 2023-07-03 03:32 | disposition home or self-care (01) ==
LOC: LBO 03:31
PROVIDERS: PCP Family Medicine; Visit Provider Internal Medicine Medical Oncology
DX: Z79.899 Other long term (current) drug therapy (principal); C78.7 Secondary malignant neoplasm of liver and intrahepatic bile duct
CPT/HCPCS: 36415; 80053; 83735; 84439; 84443; 85025

== ENCOUNTER 2023-07-24 02:52 | Outpatient (CLI) | payer MEDICARE, MEDICAID, SELFPAY ==
[2023-07-24 08:39] LABS: Absolute Eosinophil Count 0.05 10^3/uL (0.0-0.7); Absolute Lymphocyte Count 0.89 10^3/uL (1.2-3.4); Absolute Monocyte Count 0.99 10^3/uL (0.1-0.8); Basophils % 0.6; Eosinophils % 0.4; Immature Grans % 0.8; Lymphocytes % 7.1; MCH 28.4 pg (27.0-33.0); MCHC 32.4 % (32.0-36.0); MCV 88 fL (80-95); MPV 10.3 fL (8.0-11.0); Monocytes % 7.9; Neutrophils % 83.2; Platelet Count 348 10^3/uL (130-400); RBC 3.87 10^6/uL (3.93-5.22); RDW 20.4 % (11.7-14.6); RDW-SD 65.1 fL
[2023-07-24 08:51] LABS: Absolute Basophil Count 0.08 10^3/uL (0.0-0.2)
[2023-07-24 08:53] LABS: Anisocytosis 2+; Diff Comment Diff Reviewed
[2023-07-24 09:03] LABS: ALT 53 U/L (14-59); AST 246 U/L (15-37); Albumin 2.7 g/dL (3.4-5.0); Alkaline Phosphatase 735 U/L (46-116); Anion Gap 11.6 mmol/L (3-11); BUN 5 mg/dL (7-18); Bilirubin, Total 0.8 mg/dL (0.2-1.0); CO2 24.4 mmol/L (21.0-32.0); CREATININE 0.6 mg/dL (0.55-1.02); Calcium 8.7 mg/dL (8.5-10.1); Chloride 98 mmol/L (98-107); Estimated GFR 99.55 (mL/min/1.73m2); FREE T4 1.47 ng/dL (0.76-1.46); Glucose 141 mg/dL (74-106); Magnesium 1.9 mg/dL (1.8-2.4); Potassium 3.2 mmol/L (3.5-5.1); Sodium 134 mmol/L (136-145); TSH 3.18 uIU/mL (0.36-3.74); Total Protein 7.8 g/dL (6.4-8.2)
== END 2023-07-24 02:53 | disposition home or self-care (01) ==
LOC: LBO 02:53
PROVIDERS: PCP Family Medicine; Visit Provider Internal Medicine Medical Oncology
DX: Z79.899 Other long term (current) drug therapy (principal); C34.90 Malignant neoplasm of unspecified part of unspecified bronchus or lung; C79.51 Secondary malignant neoplasm of bone; C78.7 Secondary malignant neoplasm of liver and intrahepatic bile duct
CPT/HCPCS: 36415; 80053; 83735; 84439; 84443; 85025

== ENCOUNTER → 2023-08-09 01:54 | Outpatient (CLI) | payer MEDICARE, MEDICAID, SELFPAY ==
[2023-08-09] MEDS: Barium Sulfate 2% W/V-Creamy Vanilla Smoothie 450 ML BTL PO (10:10)
[2023-08-09] MEDS: Normal Saline - Diluent 50 ML VIAL IJ (11:04)
[2023-08-09] MEDS: Omnipaque 350 MG/ML 500 ML BTL-Imaging package 100 ML IJ (11:05)
--- NOTE | 2023-08-09 11:30 | DI.CT_ITS ---
Exam(s) CT CHEST/ABD/PEL W EXAM: CT CHEST/ABD/PEL W CLINICAL HISTORY: LUNG CA,C34.90,METS TO BONE,LIVER,C79.51,C78.7,RESTAGING EXAM,ON CHEMO. TECHNIQUE: Imaging Protocol: Axial computed tomography images with coronal and sagittal reformatted images were created and reviewed CONTRAST MATERIAL: Intravenous: Omnipaque 350 Contrast volume:100 ml Oral: 900 mL barium PO COMPARISON: CT CT CHEST/ABD/PELVIS W/CONTRAST from 04/13/[address] CHEST/ABD/PEL W from 06/28/2023 FINDINGS: CHEST: Tracheobronchial tree: Patent where visualized. Pulmonary parenchyma: Stable atelectasis right upper lobe. Pleura: No effusion or pneumothorax. Lymph nodes: Abnormally enlarged bilateral supraclavicular lymph nodes again noted, partially include d in field of view. Stable enlarged mediastinal and right hilar lymph nodes, merging on with right carlson perior hilar mass. Stable small left hilar node. Underlying emphysematous changes. No new infiltrates or pulmonary nodules. Aorta: Thoracic portion non-dilated. Heart: No pericardial effusion. Bones: Patchy marrow signal and T7, T9 and T10. Slight compression of T7.Slight sclerosis is now note d in the T7 vertebral body increasing from prior. Soft tissues: Port over right upper chest. ABDOMEN and PELVIS: Liver: Underlying fatty infiltration of the liver. Mild interval increase in size of liver metastases . But the largest lesion in the left lobe measures roughly 7.5 cm compared to 6.3 on the prior exam. A large lesion in the inferior right lobe measures 7.5 cm compared with 6 cm on the prior exam. Gallbladder and biliary tract: No evidence of stones or wall thickening. No biliary dilatation. Pancreas: Normal density, no abnormal calcifications or inflammatory process. Spleen: Normal. Kidneys: Normal size, contour and axis. No radiodense stones hip. No obstructive uropathy. No suspic ious masses seen. Adrenal glands: Stable bilateral renal nodules, right greater than left. Aorta: Abdominal portion non-dilated. Lymph nodes: Multiple abnormally enlarged lymph nodes in the region of the ghada hepatis and para-aor tic region. Stable from prior exam. Soft tissues: Unremarkable. Bladder: Unremarkable. Bowel: No obstruction. Sigmoid diverticulosis. Peritoneal cavity: No ascites. No focal collection. No mesenteric inflammatory response. Bones: Abnormal sclerotic appearance to the S1, S4 and S5 segments. Sclerotic mottled appearance of t he left pubic symphysis. Severe degenerative changes again noted in the right hip. Reproductive organs: Status post hysterectomy. IMPRESSION: Chest CT: Stable right upper lobe atelectasis. Stable abnormal mediastinal and hilar lymph nodes. Tho racic spine metastases. Abdomen pelvic CT: Enlargement of liver metastases. Stable adenopathy. Findings suspicious for metast ases in the left pubic symphysis and sacrum. RADIATION DOSE DELIVERED: Total DLP DATA REPOSITORY: All CT scans at this facility are submitted to the National Radiology Data Registry (NRDR) Dose Index Registry (DIR) with the [employer] ([employer]). RADIATION OPTIMIZATION: All CT scans at this facility use at least one of these dose optimization te chniques: automated exposure control; mA and/or kV adjustment per patient size (includes targeted exa ms where dose is matched to clinical indication); or iterative reconstruction.
== END ==
PROVIDERS: PCP Family Medicine; Visit Provider Internal Medicine Medical Oncology
DX: J98.11 Atelectasis (principal); C78.7 Secondary malignant neoplasm of liver and intrahepatic bile duct; C34.91 Malignant neoplasm of unspecified part of right bronchus or lung; C79.51 Secondary malignant neoplasm of bone
CPT/HCPCS: 74177; 96523; 71260; J1642

== ENCOUNTER 2023-08-14 04:08 | Outpatient (RCR) | payer MEDICARE, MEDICAID, SELFPAY ==
[2023-08-09] MEDS: Normal Saline Flush 10 ML SYR IVP ×2 (09:02→11:33)
[2023-08-09] MEDS: Heparin 500 UNITS/5 ML SYRINGE IV (11:33)
[2023-08-14] MEDS: Normal Saline Flush 10 ML SYR IVP (10:25)
[2023-08-14 10:59] LABS: Abs Immature Grans 0.19 10^3/uL (0.0-0.06); Absolute Basophil Count 0.06 10^3/uL (0.0-0.2); Absolute Lymphocyte Count 1.25 10^3/uL (1.2-3.4); Basophils % 0.4; Eosinophils % 0.1; HCT 34.7 % (36.0-46.0); HGB 10.9 g/dL (11.2-15.7); Immature Grans % 1.3; Lymphocytes % 8.9; MCH 29.5 pg (27.0-33.0); MCHC 31.4 % (32.0-36.0); MCV 94 fL (80-95); MPV 10.9 fL (8.0-11.0); Monocytes % 7.2; Neutrophils % 82.1; Platelet Count 313 10^3/uL (130-400); RBC 3.69 10^6/uL (3.93-5.22); RDW 22.8 % (11.7-14.6); RDW-SD 77.5 fL
[2023-08-14 11:02] LABS: Absolute Eosinophil Count 0.01 10^3/uL (0.0-0.7); Absolute Monocyte Count 1.02 10^3/uL (0.1-0.8); Absolute Neutrophil Count 11.58 10^3/uL (1.2-6.7)
[2023-08-14 11:15] LABS: Anisocytosis 2+; Diff Comment RBC Morph Reviewed
[2023-08-14 11:27] LABS: ALT 141 U/L (14-59); AST 281 U/L (15-37); Albumin 2.9 g/dL (3.4-5.0); Alkaline Phosphatase 679 U/L (46-116); BUN 13 mg/dL (7-18); Bilirubin, Total 0.8 mg/dL (0.2-1.0); CREATININE 0.6 mg/dL (0.55-1.02); Calcium 8.9 mg/dL (8.5-10.1); Chloride 98 mmol/L (98-107); Estimated GFR 99.55 (mL/min/1.73m2); Glucose 176 mg/dL (74-106); Magnesium 1.8 mg/dL (1.8-2.4); Potassium 3.1 mmol/L (3.5-5.1); Sodium 135 mmol/L (136-145); TSH 6.77 uIU/mL (0.36-3.74); Total Protein 7.9 g/dL (6.4-8.2)
== END 2023-09-06 23:59 | disposition home or self-care (01) ==
LOC: INF 04:08
PROVIDERS: PCP Family Medicine; Visit Provider Internal Medicine Medical Oncology
DX: C34.90 Malignant neoplasm of unspecified part of unspecified bronchus or lung (principal); C79.51 Secondary malignant neoplasm of bone; C78.7 Secondary malignant neoplasm of liver and intrahepatic bile duct; Z79.899 Other long term (current) drug therapy
CPT/HCPCS: 36591; 80053; 96523; 83735; 84439; 84443; 85025; J1642